=== PATIENT | male | born 1975 | race Caucasian/White ===

== ENCOUNTER 2019-03-11 04:29 | Emergency (ER) | payer MEDICAID ==
[~2019-03-11] VITALS: Ht 193 cm; Wt 86.2 kg
[2019-03-11 04:39] VITALS: BP 126/87
--- NOTE | 2019-03-11 04:40 | NUR ---
ED Nurse Note: PT AMBULATED TO ED C/O DISCOMFORTING STOMACHE AND DIARRHEA X 4 HOURS. PT STATES THAT "[place] AND BEER". PT DENIES PAIN AT THIS TIME. URINE SAMPLE HAS BEEN OBTAINED. PT PLACED IN GOWN. BED AT LOWEST POSITION X 1 SIDERAILS. WILL WAIT FOR FURTHER ORDERS.
[2019-03-11] MEDS ORDERED: LORazepam Inj 2mg/ml 1ml IV ONE (05:00)
--- NOTE | 2019-03-11 05:02 | Emergency Room Report ---
History of Present Illness General Chief Complaint: General Complaint Source: Patient Present Illness HPI 43-year-old male who is homeless and alcoholic. He presents with chief complaint of feeling shaky and having diarrhea. Onset just now. He thought he may have had food poisoning. He said that his last drink was about 8 hours ago. He said he woke up on the ground. He does not know if he passed out or not. He has some bruising to his arms and legs but no head injury. Denies any other complaint. Diarrhea is watery. No pain. No fever chills. Allergies: Coded Allergies: LITHIUM (Verified Allergy, Unknown, 03/11/19) shakes Patient History Past Medical History: none, see triage record, old chart reviewed Past Surgical History: none Pertinent Family History: none Social History: Reports: alcohol use Immunizations: other Reviewed Nursing Documentation: PMH: Agreed; PSxH: Agreed Nursing Documentation-PMH Hx Hypertension: Yes Review of Systems Eye: Denies: eye pain, blurred vision ENT: Denies: ear pain, nose congestion, throat swelling Respiratory: Denies: cough, shortness of breath Cardiovascular: Denies: chest pain, palpitations Gastrointestinal: Reports: diarrhea; Denies: abdominal pain, nausea, vomiting Musculoskeletal: Denies: back pain, joint pain Skin: Denies: rash Neurological: Denies: headache, numbness Endocrine: Denies: increased thirst, increased urine Hematologic/Lymphatic: Denies: easy bruising All Other Systems: negative except mentioned in HPI Physical Exam Vital Signs Date Time Temp Pulse Resp B/P (MAP) Pulse Ox O2 Delivery O2 Flow Rate FiO2 03/11/19 04:30 97.9 86 16 126/87 (100) 97 Room Air Vitals normal Sp02 EP Interpretation: reviewed, normal General Appearance: well appearing, no apparent distress, alert Head: normocephalic, atraumatic Eyes: bilateral eye PERRL, bilateral eye EOMI ENT: hearing grossly normal, normal pharynx Neck: full range of motion, supple, no meningismus Respiratory: chest non-tender, lungs clear, normal breath sounds Cardiovascular #1: regular rate, rhythm, no murmur Gastrointestinal: normal bowel sounds, non tender, no mass, no organomegaly, no bruit, non-distended Musculoskeletal: back normal, gait/station normal, normal range of motion Psychiatric: mood/affect normal Skin: other - The back of his upper extremity bilaterally. Also with bruising to the rt leg anteriorly. Medical Decision Making Diagnostic Impression: Primary Impression: Alcohol withdrawal Qualified Codes: F10.230 - Alcohol dependence with withdrawal, uncomplicated Additional Impression: Alcoholic cirrhosis of liver Qualified Codes: K70.30 - Alcoholic cirrhosis of liver without ascites ER Course Patient presents with mild alcohol withdrawal. Better after Ativan. He also has evidence of alcoholic liver disease. Platelets low. Liver enzyme elevated. This may explain his easy bruising. No evidence of acute injury. No evidence of any neurological deficit. Will discharge home. Pt doesn't want assisted. Last Vital Signs Date Time Temp Pulse Resp B/P (MAP) Pulse Ox O2 Delivery O2 Flow Rate FiO2 03/11/19 04:39 97.9 86 16 126/87 97 Room Air Status: improved Disposition: HOME, SELF-CARE Condition: Stable Scripts Chlordiazepoxide (Chlordiazepoxide HCl) 25 Mg Capsule 25 MG ORAL THREE TIMES A DAY, #15 CAP 0 Refills Prov: Orlando Rivera MD 03/11/19 Referrals: NOT CHOSEN [facility]/,REFERRING (PCP) Additional Instructions: Stop drinking. Go to rehab. Follow up with your doctor in 7 days. Return if worse. Orlando Rivera MD Mar 11, 2019 05:02
[2019-03-11 05:49] LABS: HEMATOCRIT 45.4 % (42.0-52.0); HEMOGLOBIN 15.3 G/DL (14.2-18.0); MEAN CORPUSCULAR VOLUME 102 FL (80-99); PLATELET COUNT 48 K/UL (150-450); RED BLOOD COUNT 4.46 M/UL (4.70-6.10); RED CELL DISTRIBUTION WIDTH 11.8 % (11.6-14.8); WHITE BLOOD COUNT 2.7 K/UL (4.8-10.8)
[2019-03-11 06:04] LABS: ANION GAP 11 mmol/L (5-15); BLOOD UREA NITROGEN 8 mg/dL (7-18); CALCIUM 8.4 MG/DL (8.5-10.1); CARBON DIOXIDE 27 MMOL/L (21-32); CHLORIDE 104 MMOL/L (98-107); CREATININE 0.7 MG/DL (0.55-1.30); POTASSIUM 3.2 MMOL/L (3.5-5.1); SODIUM 142 MMOL/L (136-145)
[2019-03-11 06:14] LABS: ALANINE AMINOTRANSFERASE 197 U/L (12-78); ALBUMIN 3.9 G/DL (3.4-5.0); ALBUMIN/GLOBULIN RATIO 1.1 (1.0-2.7); ALKALINE PHOSPHATASE 131 U/L (46-116); ASPARTATE AMINO TRANSFERASE 584 U/L (15-37); BILIRUBIN,TOTAL 1.3 MG/DL (0.2-1.0)
[2019-03-11 06:23] LABS: BILIRUBIN,DIRECT 0.4 MG/DL (0.0-0.3)
[2019-03-11] MEDS ORDERED: LIBRIUM25 MG ORAL (06:28)
[2019-03-11 06:30] VITALS: BP 131/84
--- NOTE | 2019-03-11 06:30 | NUR ---
ER DISCHARGE NOTE: Patient is cleared to be discharged per ERMD, pt is aox4, on room air, with stable vital signs. pt was given dc and prescription instructions, pt was able to verbalize understanding, pt id band and iv site removed without complications. pt is able to ambulate with steady gait. pt took all belongings. pt was given food and juice
== END 2019-03-11 06:30 | disposition home or self-care (01) ==
LOC: EMR 04:45
DX: F10.230 Alcohol dependence with withdrawal, uncomplicated (principal); K70.30 Alcoholic cirrhosis of liver without ascites; I10 Essential (primary) hypertension; Z88.8 Allergy status to other drugs, medicaments and biological substances
CPT/HCPCS: 36415; 80053; 82248; 83690; 85025; 96361; 96374; Z7502; 99284